=== PATIENT | female | born 1960 | race Caucasian/White ===

== ENCOUNTER 2017-04-30 15:15 | Emergency (ER) | payer OTHER ==
[~2017-04-30] VITALS: Ht 152.4 cm; Wt 65.8 kg
--- NOTE | 2017-04-30 15:37 | ED PSYCHIATRIC COMPLAINT ---
See Addendum History of Present Illness General Chief Complaint: Psychiatric Related Complaint Stated Complaint: DEPRESSION Source: patient, EMS Exam Limitations: no limitations Vital Signs & Intake/Output Vital Signs & Intake/Output Vital Signs Date Time Temp Pulse Resp B/P B/P Pulse O2 O2 Flow FiO2 Mean Ox Delivery Rate 05/01 0609 97.6 76 20 115/66 95 Room Air 04/30 2121 98.2 78 16 135/64 97 Room Air 04/30 1752 80 16 138/78 98 04/30 1530 99.1 101 15 147/80 99 Room Air Room Air ED Intake and Output 05/01 0000 04/30 1200 Intake Total Output Total Balance Patient 145 lb Weight Weight Reported by Patient Measurement Method Allergies Coded Allergies: Sulfa (Sulfonamide Antibiotics) (Severe, "RED AND BLOW UP" 04/30/17) latex (Severe, RASH, SWELL UP 04/30/17) Penicillins (Intermediate, RASH ALL OVER 04/30/17) Reconcile Medications Amlodipine Besylate 5 MG TABLET 1 TAB PO DAILY BP (Reported) Bupropion HCl (Bupropion HCl Sr) 200 MG TABLET.ER 1 TAB PO QAM MENTAL HEALTH (Reported) Clonazepam 0.5 MG TABLET 1 TAB PO BID ANXIETY (Reported) Fluoxetine HCl 40 MG CAPSULE 1 CAP PO DAILY MENTAL HEALTH (Reported) Fluticasone/Salmeterol (Advair 250-50 Diskus) 250 MCG-50 MCG/DOSE BLST.W.DEV 1 PUF INH BID ASTHMA (Reported) Gabapentin 600 MG TABLET 1 TAB PO BID NERVE PAIN (Reported) Lamotrigine 25 MG TABLET 1 TAB PO BID MENTAL HEALTH (Reported) Lidocaine 5 % ADH..PATCH 1 PAT TOP DAILY LEFT SHOULDER (Reported) Montelukast Sodium 10 MG TABLET 1 TAB PO QPM ALLERGIES/ASTHMA (Reported) Naproxen 500 MG TABLET 1 TAB PO BID PAIN (Reported) Olopatadine HCl (Pataday) 0.2 % DROPS 1 GTT OPH DAILY BOTH EYES - ALLERGIES ( Reported) Ondansetron HCl 4 MG TABLET 1 TAB PO PRN N/V (Reported) Pantoprazole Sodium 20 MG TABLET.DR 1 TAB PO DAILY GI (Reported) Triamcinolone Acetonide 0.5 % OINT...G. 1 MIGEL TOP BID HANDS (Reported) apply to affected area(s) Zolpidem Tartrate 10 MG TABLET 1 TAB PO QHS SLEEP (Reported) Triage Note: PT TO ED FOR EMOTIONAL DISTRESS. PT LOST HER JOB TWO YEARS AGO AND HAS RECENTLY TRIED TO GET A JOB BUT HASN'T BEEN ABLE TO. PT IS UNDER STRESS ABOUT THIS UNEMPLOYMENT. PT DENIES SI/HI. PT HAS HX OF BIPOLAR, DEPRESSION, ANXIETY AND HAS BEEN MED COMPLIANT. UNABLE TO SLEEP. Triage Nurses Notes Reviewed? yes Onset: Gradual Duration: day(s): (FEW) Timing: recent history Severity: moderate, severe Associated Symptoms: anxiety, impaired concentration, insomnia HPI: This is a 48-year-old female with history of depression and anxiety who presents to the ER with chief complaint of crying for 2 days. She is very depressed that she has been an employee for the past 2 years. 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 This is a result of viral meningitis that she had a few years ago. Denies any alcohol or drug use. She states her psychiatrist told her to come to the ER for evaluation today. (TRISTON ALBRIGHT MD) Past History Travel History Traveled to [place] past 21 day No Medical History Any Pertinent Medical History? see below for history Cardiovascular: hypertension Psychiatric: anxiety, bipolar disease Surgical History Surgical History: non-contributory Psychosocial History What is your primary language Sami Tobacco Use: Never used ETOH Use: occasional use Illicit Drug Use: denies illicit drug use Family History Hx Contributory? No (TRISTON ALBRIGHT MD) Review of Systems Review of Systems Constitutional: Denies: chills, fever. EENTM: Reports: no symptoms. Respiratory: Denies: cough, short of breath. Cardiovascular: Denies: chest pain. GI: Reports: no symptoms. Genitourinary: Reports: no symptoms. Musculoskeletal: Reports: no symptoms. Skin: Reports: no symptoms. Neurological/Psychological: Reports: ataxia, depressed, emotional problems. Hematologic/Endocrine: Reports: no symptoms. Immunologic/Allergic: Denies: splenectomy. All Other Systems: Reviewed and Negative (TRISTON ALBRIGHT MD) Physical Exam Physical Exam General Appearance: well developed/nourished, alert, awake, anxious, mild distress, moderate distress Head: atraumatic Eyes: Bilateral: PERRL, EOMI. Ears, Nose, Throat: normal pharynx, normal ENT inspection, hearing grossly normal Neck: normal inspection, supple Respiratory: normal breath sounds Cardiovascular: regular rate/rhythm Gastrointestinal: soft, non-tender Extremities: normal range of motion Neurological/Psychiatric: no motor/sensory deficits, awake, alert, anxious Appearance/Memory/Insight: appropriate appearance, neat Behavoir/Eye Contact/Speech: cooperative, decreased rate of speech, good eye contact Thoughts/Hallucinations: no apparent hallucination Skin: intact, normal color, warm/dry SAD PERSONS Done? patient not suicidal (JOSE RAMON SWENSON,TRISTON) Progress Differential Diagnosis: MAJOR DEPRESSION, ANXIETY Plan of Care: Orders Procedure Date/time Status Regular Diet 05/01 B Active URINE DRUGS OF ABUSE 04/30 1538 Complete ETHANOL 04/30 1538 Complete COMPREHENSIVE METABOLIC PANEL 04/30 1538 Complete CBC WITHOUT DIFFERENTIAL 04/30 1538 Complete ED CRISIS PSYCH CONSULT 04/30 1538 Active Current Medications Sig/Mary Start time Last Medication Dose Stop Time Status Admin Amlodipine Besylate 5 MG ONCE ONE 05/01 1000 UNVr (Norvasc) 05/01 1001 Bupropion HCl 200 MG ONCE ONE 05/01 1000 UNVr (Wellbutrin SR) 05/01 1001 Clonazepam 0.5 MG ONCE ONE 05/01 1000 UNVr (KlonoPIN) 05/01 1001 Fluoxetine HCl 40 MG ONCE ONE 05/01 1000 UNVr (Prozac) 05/01 1001 Gabapentin 600 MG ONCE ONE 05/01 1000 UNVr (Neurontin) 05/01 1001 Lamotrigine 25 MG ONCE ONE 05/01 1000 UNVr (LaMICtal) 05/01 1001 Lamotrigine 25 MG BID 04/30 2200 UNVr 04/30 (LaMICtal) 2113 Zolpidem Tartrate 10 MG AT BEDTIME 04/30 2200 AC 04/30 (Ambien) 2113 Laboratory Tests 04/30/17 1639: Urine Opiates Screen < 100.00, Methadone Screen 49, Barbiturate Screen < 60, Ur Phencyclidine Scrn < 6.00, Amphetamines Screen 272, U Benzodiazepines Scrn < 85, Urine Cocaine Screen < 50, Urine Cannabis Screen < 5.00 04/30/17 1555: Anion Gap 10, Estimated GFR > 60, BUN/Creatinine Ratio 25.0, Glucose 116 H, Calcium 9.6, Total Bilirubin 0.5, AST 18, ALT 32, Alkaline Phosphatase 71, Total Protein 6.7, Albumin 4.2, Globulin 2.5, Albumin/Globulin Ratio 1.7, CBC w Diff NO MAN DIFF REQ, RBC 4.60, MCV 83.3, MCH 26.8 L, RDW 17.5 H, MPV 7.1 L, Gran % 54.8, Lymphocytes % 32.7, Monocytes % 7.4, Eosinophils % 4.6, Basophils % 0.5, Absolute Granulocytes 3.9, Absolute Lymphocytes 2.3, Absolute Monocytes 0.5, Absolute Eosinophils 0.3, Absolute Basophils 0, PUBS MCHC 32.1 L, Serum Alcohol < 10.0 7:17 PM PATIENT SEEN BY JOE FROM CRISIS. LIKELY BED SEARCH. EVENING MEDICATIONS ORDERED. (TRISTON ALBRIGHT MD) Hand-Off Endorsed To: GRANT HUSSEIN MD Endorsed Time: 2336 Pending: consult ([facility] IN[facility]) (TRISTON ALBRIGHT MD) Hand-Off Endorsed To: JERICA DENISE MD Endorsed Time: 0700 Pending: consult (GRANT HUSSEIN MD) Comments: Patient has been seen and evaluated by web services professional. Patient is stable for discharge. Patient has a follow-up appointment with [facility] on Friday. (JERICA DENISE MD) Departure Departure Condition: Stable Clinical Impression Primary Impression: Major depression Departure Forms: Customer Survey General Discharge Information (TRISTON ALBRIGHT MD) Departure Disposition: HOME OR SELF CARE Additional Instructions: FOLLOW UP [facility] ON FRIDAY RETURN FOR ANY CONCERNS (JERICA DENISE MD)
[2017-04-30 16:03] LABS: ABSOLUTE BASOPHIL COUNT 0 /CUMM (0.0-0.2); ABSOLUTE EOSINOPHIL COUNT 0.3 /CUMM (0.0-0.7); ABSOLUTE GRANULOCYTE CT 3.9 /CUMM (1.4-6.5); ABSOLUTE LYMPH COUNT 2.3 /CUMM (1.2-3.4); ABSOLUTE MONOCYTE COUNT 0.5 /CUMM (0.10-0.60); BASOPHIL % 0.5 % (0.0-2.0); EOSINOPHIL % 4.6 % (0-5); GRANULOCYTE % 54.8 % (42.2-75.2); HEMATOCRIT 38.3 % (37-47); MEAN CORPUSCULAR HGB 26.8 PG (27.0-31.0); MEAN CORPUSCULAR HGB CONC 32.1 G/DL (33.0-37.0); MEAN CORPUSCULAR VOLUME 83.3 FL (81.0-99.0); MEAN PLATELET VOLUME 7.1 FL (7.4-10.4); PLATELET COUNT 350 /CUMM (130-400); RBC DISTRIBUTION WIDTH 17.5 % (11.5-14.5); WHITE BLOOD CELL COUNT 7.1 /CUMM (4.8-10.8)
[2017-04-30] MEDS ORDERED: AMLODIPINE BESYL5 M1 PO (16:56)
[2017-04-30] MEDS ORDERED: PANTOPRAZOLE SO20 M1 PO (16:56)
[2017-04-30] MEDS ORDERED: TRIAMCINOLONE A15 G4 TOP (16:56)
[2017-04-30] MEDS ORDERED: BUPROPION HCL200 M2 PO (16:57)
[2017-04-30] MEDS ORDERED: FLUOXETINE HCL40 M1 PO (16:57)
[2017-04-30] MEDS ORDERED: CLONAZEPAM0.5 M2 PO (16:57)
[2017-04-30] MEDS ORDERED: PATADAY2.5 ML OPH (16:57)
[2017-04-30] MEDS ORDERED: ZOLPIDEM TARTRA10 M1 PO (16:57)
[2017-04-30] MEDS ORDERED: LIDOCAINE1 EACH TOP (16:58)
[2017-04-30] MEDS ORDERED: LAMOTRIGINE25 M3 PO (16:58)
[2017-04-30] MEDS ORDERED: NAPROXEN500 M2 PO (16:58)
[2017-04-30] MEDS ORDERED: ONDANSETRON HCL4 MG PO (16:58)
[2017-04-30] MEDS ORDERED: MONTELUKAST SOD10 M1 PO (16:59)
[2017-04-30] MEDS ORDERED: GABAPENTIN600 M1 PO (16:59)
[2017-04-30] MEDS ORDERED: ADVAIR 250-501 EACH INH (16:59)
--- NOTE | 2017-04-30 19:52 | ED PSYCH CRISIS CONSULTATION ---
See Addendum Crisis Consult Basic Assessment Date of Consult: 04/30/17 Responsible Person/Accompanied By: self Insurance Authorization: Insurance #1: Insurance name: SEKOU BEJARANO Phone number: Policy number: [id number] Group number: Authorization number: ED Provider: Patient's ED Provider: TRISTON ALBRIGHT MD Primary Care Physician: Patient's PCP: UNKNOWN PCP's Phone Number: Current Psychiatrist: Enrique Aguilar MD [phone] Chief Complaint: Psychiatric Related Complaint Patient's Quote: I cant stop crying. I feel like a failure Present Illness: Pt is a 56 yo female self presenting to [place] ED this afternoon with complaint of depression. 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 Pt reports having a bipolar diagnosis and is treated by Psychiatrist Enrique Aguilar the past 9 yrs. She reports appointment with him today and he recommended she come for evaluation due to having an "emotional breakdown". She reports incessant crying past several days, inability to concentrate or sleep. She reports feeling hopeless and that she is a failure. She reports one inpatient admission in 2001 at [facility]. She denies SI/HI; AH/VH. She reports she wouldn't harm herself because she needs to care for her dog jose. Pt discussed loss of significant other 15 yrs ago to cancer. Pt presented as tearful/appears to still be grieving. Pt denies etoh and other substance use. Pt has multiple health conditions including hypertension and arthritis. Pt is alert , engaged and [employer]. Pt reports wanting an inpatient psychiatric admission. Patient's Address: [address] [place] [address] Other Phone Number: Who Do You Live With? Patient/Self Family/Informants Interviewed: collateral provided pt sister Isai Sawyer [phone]. She reports sister notified her that she is coming to [place] ED for eval. Isai expressed concern that pt has been dealing with a lot and is hopeful she can get the help she needs. Allergies - Coded Allergies: Sulfa (Sulfonamide Antibiotics) (Severe, "RED AND BLOW UP" 04/30/17) latex (Severe, RASH, SWELL UP 04/30/17) Penicillins (Intermediate, RASH ALL OVER 04/30/17) Current Medications - Scheduled Medications Amlodipine Besylate 5 MG TABLET 1 TAB PO DAILY BP #90 (Reported) Entered as Reported by CIRA HOLMAN on 04/30/171655 Bupropion HCl (Bupropion HCl Sr) 200 MG TABLET.ER 1 TAB PO QAM MENTAL HEALTH # 13 (Reported) Entered as Reported by CIRA HOLMAN on 04/30/171656 Clonazepam 0.5 MG TABLET 1 TAB PO BID ANXIETY #26 (Reported) Entered as Reported by CIRA HOLMAN on 04/30/171656 Fluoxetine HCl 40 MG CAPSULE 1 CAP PO DAILY MENTAL HEALTH #13 (Reported) Entered as Reported by CIRA HOLMAN on 04/30/171656 Fluticasone/Salmeterol (Advair 250-50 Diskus) 250 MCG-50 MCG/DOSE BLST.W.DEV 1 PUF INH BID ASTHMA #60 (Reported) Entered as Reported by CIRA HOLMAN on 04/30/171658 Gabapentin 600 MG TABLET 1 TAB PO BID NERVE PAIN #180 (Reported) Entered as Reported by CIRA HOLMAN on 04/30/171658 Lamotrigine 25 MG TABLET 1 TAB PO BID MENTAL HEALTH #60 (Reported) Entered as Reported by CIRA HOLMAN on 04/30/171657 Lidocaine 5 % ADH..PATCH 1 PAT TOP DAILY LEFT SHOULDER #30 (Reported) Entered as Reported by CIRA HOLMAN on 04/30/171657 Montelukast Sodium 10 MG TABLET 1 TAB PO QPM ALLERGIES/ASTHMA #90 (Reported) Entered as Reported by CIRA HOLMAN on 04/30/171658 Naproxen 500 MG TABLET 1 TAB PO BID PAIN #60 (Reported) Entered as Reported by CIRA HOLMAN on 04/30/171657 Olopatadine HCl (Pataday) 0.2 % DROPS 1 GTT OPH DAILY BOTH EYES - ALLERGIES #3 (Reported) Entered as Reported by CIRA HOLMAN on 04/30/171656 Pantoprazole Sodium 20 MG TABLET.DR 1 TAB PO DAILY GI #30 (Reported) Entered as Reported by CIRA HOLMAN on 06/14/17 1656 Triamcinolone Acetonide 0.5 % OINT...G. 1 MIGEL TOP BID HANDS #60 (Reported) Entered as Reported by CIRA HOLMAN on 04/30/17 1656 Zolpidem Tartrate 10 MG TABLET 1 TAB PO QHS SLEEP #13 (Reported) Entered as Reported by CIRA HOLMAN on 04/30/17 1657 Scheduled PRN Medications Ondansetron HCl 4 MG TABLET 1 TAB PO PRN N/V #40 (Reported) Entered as Reported by CIRA HOLMAN on 04/30/17 1658 Laboratory Results: Laboratory Tests 04/30/17 1639: Urine Opiates Screen < 100.00, Methadone Screen 49, Barbiturate Screen < 60, Ur Phencyclidine Scrn < 6.00, Amphetamines Screen 272, U Benzodiazepines Scrn < 85, Urine Cocaine Screen < 50, Urine Cannabis Screen < 5.00 04/30/17 1555: Anion Gap 10, Estimated GFR > 60, BUN/Creatinine Ratio 25.0, Glucose 116 H, Calcium 9.6, Total Bilirubin 0.5, AST 18, ALT 32, Alkaline Phosphatase 71, Total Protein 6.7, Albumin 4.2, Globulin 2.5, Albumin/Globulin Ratio 1.7, CBC w Diff NO MAN DIFF REQ, RBC 4.60, MCV 83.3, MCH 26.8 L, RDW 17.5 H, MPV 7.1 L, Gran % 54.8, Lymphocytes % 32.7, Monocytes % 7.4, Eosinophils % 4.6, Basophils % 0.5, Absolute Granulocytes 3.9, Absolute Lymphocytes 2.3, Absolute Monocytes 0.5, Absolute Eosinophils 0.3, Absolute Basophils 0, PUBS MCHC 32.1 L, Serum Alcohol < 10.0 (LUCAS KELLY LCSW) Basic Assessment Primary Care Physician: Patient's PCP: UNKNOWN PCP's Phone Number: (YADIRA BRENNAN,KADEEM) Addendum Addendum Crisis re-evaluated this AM. Pt denied SI/HI/AVH. She stated she is not suicidal and was seeking additional supports. She has her sister and the [employer] group as supports. Pt is not currently working. Pt has no hx of suicide attempts. She verbalized safety plan to call [phone] , go to the nearest ED if she feels unsafe. This magazine writer discussed IOP level of care and pt is in agreement with treatment recommendation. Case reviewed with Dr. Toth and recommends IOP LOC. 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 Psychiatric Treatment History Psych Treatment Psychiatric Treatment Yes Inpatient Treatment Yes Outpatient Treatment Yes Location of Treatment [facility] 2001; [facility] outpatient psychiatry Reason for Treatment bipolar Response to Treatment recent inabilty to concentrate; overwhelmed with sadness/tearful/hopeless Diagnosis by History: Bipolar d/o Substance Use/Abuse History Drug Use/Abuse Substances Used/Abused No Substance Abuse Treatment Substance Abuse Treatment Past Substance Abuse [place] No Comments: denies etoh/drug use (LUCAS KELLY LCSW) Current Mental Status Mental Status Orientation: Person, Place, Situation Affect: Depressed, Sad Speech: WNL Neuro-vegetative: Appetite Decreased, Concentration Poor, Energy Decreased, Helpless, Loss of Interest, Sleep Disturbance Appearance Appearance- Dress/Hygiene: hospital scrubs; well groomed; glasses; tearful throughout eval; good eye contact Behaviors Thought Process: WNL Thought Content: WNL Memory: Impaired Insight: WNL SI/HI Risk Assessment Past Suicidal Ideation/Attempts No Current Suicidal Ideation/Att No Past Homicidal Ideation/Att: No Current Homicidal Ideation/Attempts No Degree of Intent: None Risk Factors: chronic/serious med cond., high anxiety/distress, SA/MH hospitalized, lives alone, limited support Lethality Ratin PTSD Checklist PTSD Done? patient declined ED Management Sitter: Yes Restraints: No (LUCAS KELLY LCSW) DSM5/PS Stressors/Medical Prob Diagnosis' (DSM 5, Stressors, Medical): Bipolar D/O depressed (F31.4) multiple health complaints unemployment finances still grieving of SO Current GAF: 25 Comments: pt feeling overwhelmed with sadnees. reports inability to concentrate; difficulty sleeping; thoughts of being a failure; can't stop from crying. (LUCAS KELLY LCSW) Departure Disposition Psych Medical Clearance Date: 04/30/17 Medically Cleared at: 1845 Time Started: 0 Time Ended: 1929 Psychiatrist Consulted: César Toney MD Date Disposition Established: 04/30/17 Time Disposition Established: 1999 Plan for Disposition - Modality: Bed Search Rationale for Disposition: Pt experiencing overwhelming sadness. Uncontrollable crying, inability to concentrate, poor sleep. Her Psychiatrist recommended she get evaluated because she is having an "emotional breakdown". Pt requiring inpatient psychiatric treatment for stabilization. Bed Search required due to no beds available on [facility]. Referrals UNKNOWN (PCP) (ROBIN BRENNAN,LUCAS) Disposition Psych Medical Clearance Date: 05/01/17 Medically Cleared at: 0730 Time Started: 729 Time Ended: 939 Psychiatrist Consulted: Byron Toth MD Date Disposition Established: 05/01/17 Time Disposition Established: 939 Plan for Disposition - Modality: [facility] Facility: [facility] Follow-up Appt Date: 05/07/17 Follow-Up Appt Time: 1400 Contact: Calli Rationale for Disposition: Pt denies SI/HI/AVH. She has no hx of suicide attempts or thoughts. She is not suicidal and does not want to hurt herself. Pt is in agreement with [facility] recommendation for treatment and LOC. (YADIRA BRENNAN,KADEEM)
[2017-05-01 18:34] VITALS: BP 122/74
== END 2017-05-01 11:13 | disposition other institution (70) ==
LOC: ERH 15:15
PROVIDERS: Emergency Medicine
DX: F32.9 Major depressive disorder, single episode, unspecified (principal); I10 Essential (primary) hypertension; F41.9 Anxiety disorder, unspecified; F31.9 Bipolar disorder, unspecified; F10.10 Alcohol abuse, uncomplicated
CPT/HCPCS: 80307; G0463; G0480